=== PATIENT | female | born 2000 | race African-American/Black ===

== ENCOUNTER 2019-09-15 17:16 | Emergency (ER) | payer MEDICAID, SELFPAY ==
[2019-09-15 17:18] VITALS: BP 122/83; PULSE 107; PULSE 113; RESP 18; RESP 19; TEMP 35.9; O2SAT 97; O2SAT 99; BMI 20.9
--- NOTE | 2019-09-15 18:01 | ED.DCSUM_ITS ---
History of Present Illness Chief Complaint: Nausea/Vomiting Informant: Patient Onset: Today Context: Gradual Onset Timing: Continuous Current Severity: Severe Maximum Severity: Severe Narrative: Patient is a 18-year-old female with history of severe abdominal pain and vomiting associated with her menstrual cycles presenting with the same symptoms. Patient states she started her period today. She states she developed diffuse abdominal pain that feels like her typical menstrual cramps. She did develop severe vomiting. Patient try to take Zofran which she had at home but thinks she threw it up. She went to [facility] and was then referred to the ER for further evaluation. Patient states this is typical of what ever she has a menstrual cycle. She states she sees a member of congress up in [place] and has been prescribed control. She does not take it regularly. She also states she is running out of it but does still have some at her dorm room. Patient told triage that she was also lightheaded because of her symptoms. She denies any alcohol, marijuana, illicit drug or tobacco abuse. She does not think she is . She denies any other complaints at this time. Past Medical History - Allergies and Home Meds Allergies/Adverse Reactions: Allergies iodine Allergy (Verified 09/15/19 17:17) Unknown shellfish derived Allergy (Verified 09/15/19 17:17) Unknown Primary Care Physician: NOT,DEFINED [NON-STAFF] - Past Medical History: None Surgical History: no surgical history Lives: - - Dorm Smoking Status: Never smoker Alcohol: None Drugs: None Review of Systems All systems negative except as indicated Gastrointestinal: Reports: Abdominal pain, Nausea, Vomiting Genitourinary: Reports: - - Menstrual cramps Physical Exam Vital Signs/Narrative: Vital Signs Temp Pulse Resp BP Pulse Ox 09/15/19 17:18 96.6 F L 107 H 18 122/83 H 97 Inital Vital Signs reviewed: Yes General: Well nourished, Well developed, No Acute Distress, - - Patient retching during my exam Head: Normocephalic, Atraumatic Eyes: Perrl, EOMI ENT: Moist mucous membranes, No rhinorrhea Neck: Supple, Nontender Cardiovascular: Regular rate, Regular rhythm, No murmurs Respiratory: No distress, CTA bilaterally, Chest nontender Abdomen: Soft, Nondistended, Normal bowel sounds, No masses, Tender - Lower pelvic area, - - No pain at McBurney's point. Negative for: Rebound tenderness, Maher's sign Back: Nontender, Normal Inspection. Negative for: CVA tenderness Extremities: Nontender, No edema Skin: Normal color, No rash Neurological: Alert, Oriented x3, Cranial nerves II-XII grossly intact, Normal Strength, Normal Sensation Psychological: Normal Mood, - - Patient is withdrawn and answers most questions with head nods, poor eye contact Diagnostic/Tx/Re-eval Laboratory Data 09/15/19 09/15/19 09/15/19 17:55 17:55 20:14 WBC 10.6 RBC 4.90 Hgb 14.2 Hct 41.4 MCV 84.5 MCH 29.0 MCHC 34.3 RDW Std Deviation 40.5 RDW Coeff of Anamaria 13.2 Plt Count 242 MPV 9.1 Immature Gran % (Auto) 0.400 Neut % (Auto) 81.4 H Lymph % (Auto) 11.8 L Forest % (Auto) 5.9 Eos % (Auto) 0.1 Baso % (Auto) 0.4 Absolute Neuts (auto) 8.6 H Absolute Lymphs (auto) 1.25 Nucleated RBC % 0 Sodium 140 Potassium 3.8 Chloride 108 H Carbon Dioxide 22.0 Anion Gap 10 BUN 12 Creatinine 0.86 Estim Creat Clear Calc 103.97 Est GFR (MDRD) Af Amer 109 Est GFR (MDRD) Non-Af 90 BUN/Creatinine Ratio 14.0 Glucose 114 H Calcium 9.6 Total Bilirubin 0.40 AST 24 ALT 16 Alkaline Phosphatase 78 Total Protein 8.6 H Albumin 3.9 Globulin 4.7 H Albumin/Globulin Ratio 0.8 L Lipase 45 L Urine Color Urine Clarity Urine pH Ur Specific Darlington Urine Protein Urine Glucose (UA) Urine Ketones Urine Occult Blood Urine Nitrite Urine Bilirubin Urine Urobilinogen Ur Leukocyte Esterase Urine RBC Urine WBC Ur Squamous Epith Cells Amorphous Sediment Urine Bacteria Urine Mucus Urine Test Negative 09/15/19 20:14 WBC RBC Hgb Hct MCV MCH MCHC RDW Std Deviation RDW Coeff of Anamaria Plt Count MPV Immature Gran % (Auto) Neut % (Auto) Lymph % (Auto) Forest % (Auto) Eos % (Auto) Baso % (Auto) Absolute Neuts (auto) Absolute Lymphs (auto) Nucleated RBC % Sodium Potassium Chloride Carbon Dioxide Anion Gap BUN Creatinine Estim Creat Clear Calc Est GFR (MDRD) Af Amer Est GFR (MDRD) Non-Af BUN/Creatinine Ratio Glucose Calcium Total Bilirubin AST ALT Alkaline Phosphatase Total Protein Albumin Globulin Albumin/Globulin Ratio Lipase Urine Color Yellow Urine Clarity Cloudy Urine pH 7.0 Ur Specific Darlington 1.015 Urine Protein 30 H Urine Glucose (UA) Normal Urine Ketones 50 H Urine Occult Blood 250 H Urine Nitrite Negative Urine Bilirubin Negative Urine Urobilinogen Normal Ur Leukocyte Esterase 25 H Urine RBC 50-100 SEEN Urine WBC 5-10 SEEN Ur Squamous Epith Cells 0-5 SEEN Amorphous Sediment 2+ Urine Bacteria 4+ Urine Mucus 1+ Urine Test - Medical Decision Making Patient is evaluated for abdominal pain and vomiting. She states she gets these episodes with her menstrual cycles. She has an CONTROL TECHNICIAN in [place] and is supposed to be on control pills but does not take it regularly. She also states she is running out. Patient states like this feels like her prior episodes. She tried to take Zofran at home but threw it up. Patient is throwing up what looks like stomach contacts. There is no blood in it. She is difficult to examine initially because she does not want to lay down because she is retching. She is tender in her suprapubic region but does not have any peritoneal signs. Patient is initially given IV fluids, IV Zofran and Toradol. CBC, CMP and lipase are grossly normal. She does not have signs of acute leukocytosis, pancreatitis, transaminitis or KAREN. Urinalysis shows mild ketones and some blood which I suspect is contamination from her menstrual cycle. No signs of infection. I have a low suspicion for PID based on the fact that she is afebrile, denies any abnormal vaginal discharge and has normal blood work. Patient requires additional IV Phenergan as she is still having a lot of nausea and retching. On reevaluation she is mildly improved but still throwing up. Patient is given 2 mg of IV Haldol. On reevaluation patient is now resting comfortably in bed and states she feels much better. As patient states this is consistent with her prior episodes, I do not think imaging is indicated at this time. Her vital signs normalized with nausea and pain control. She is able to pass p.o. challenge in the emergency room. Patient is counseled that she really needs to adhere to her control regiment to prevent these episodes as a seem to be associated with her menstrual cycles. In addition she is referred to an CONTROL TECHNICIAN locally as she is now living down here for college. Patient is counseled on signs and symptoms requiring return to the emergency room. Patient verbalizes agreement and understand this plan. Patient discharged home in stable and improved condition. ED Disposition - Plan for ED Patient: Disposition: Home or Assisted Living Diagnosis: Nausea and vomiting, Abdominal pain, Dysmenorrhea Instructions: ABDOMINAL PAIN, Unknown Cause, (Female), VOMITING (5y-Adult), D ysmenorrhea Prescriptions: Ibuprofen [Motrin] 600 mg PO Q6H PRN PRN #20 tab PRN Reason: Pain Or Fever Prescription Printed proMETHazine suppository [Phenergan Suppository] 25 mg RECTAL Q6H PRN PRN #6 suppos. PRN Reason: Nausea Prescription Printed Ondansetron [Zofran Odt] 4 mg PO Q8H PRN PRN #15 tab PRN Reason: Nausea Prescription Printed Referrals: NOT,DEFINED [NON-STAFF] - Cody June MD [STAFF PHYSICIAN] - Additional Instructions: You have been seen for abdominal pain associate with her menstrual cycles. You have been prescribed multiple nausea medicines. The Phenergan suppository can be used if you were throwing up too much to tolerate any pills. Please start taking her control regularly. You can start taking it today when you get home. It is very importantly follow-up in CONTROL TECHNICIAN. Return the emergency room if you develop recurrent or worsening symptoms. Drink plenty of fluids at home.
[2019-09-15] MEDS: 0.9% Normal Saline 1,000 ML 1000 ML IV (18:03)
[2019-09-15] MEDS: Ketorolac 30 MG/ML Syringe IV (18:03)
[2019-09-15] MEDS: Ondansetron 4 MG/2 ML Vial IV (18:03)
[2019-09-15 18:04] LABS: Absolute Lymphocyte Count 1.25 X10^3/uL (0.83-4.51); Absolute Neutrophil Count 8.6 X10^3/uL (2.0-7.7); Basophil# 0.04 X10^3/uL; Basophil% 0.4 % (0-1); Eosinophil# 0.01 X10^3/uL; Eosinophils% 0.1 % (0-5); Hematocrit 41.4 % (37-47); Hemoglobin 14.2 g/dL (12.0-15.0); Lymphocyte # 1.25 X10^3/ul (4.0); Lymphocyte % 11.8 % (19-41); Mean Corp Hgb Conc 34.3 g/dL (32-36); Mean Corpuscular Volume 84.5 fL (81-99); Mean Platelet Vol. 9.1 fl (6.2-12.0); Monocyte# 0.63 X10^3/uL; Monocyte% 5.9 % (0-10); NRBC Flagged by Analyzer 0 % (0-5); Neutrophil # 8.63 X10^3/uL (2.7-7.7); Neutrophil % 81.4 % (47-70); Platelet Count 242 K/mm3 (150-450); RBC Distribution Width CV 13.2 % (11.6-14.6); RBC Distribution Width SD 40.5 fl (35.1-43.9); White Blood Count 10.6 K/mm3 (4.4-11.0)
[2019-09-15 19:18] LABS: ALB/GLOB Ratio 0.8 RATIO (0.9-2.4); AST(SGOT) 24 U/L (15-37); Alanine Aminotransfer ALT/SGPT 16 U/L (13-56); Albumin, Serum 3.9 g/dL (3.2-5.0); Alkaline Phosphatase 78 U/L (45-117); Anion Gap 10 (5-15); BUN 12 mg/dL (7-18); Calcium,Total 9.6 mg/dL (8.5-10.1); Chloride 108 mmol/L (98-107); Creatinine, Serum 0.86 mg/dL (0.55-1.02); EST Glomerular Filtration Rate 90 mL/min (>60); Est Glom Filt Rate - Afr Amer 109 mL/min (>60); Estimated Creatinine Clearance 103.97 ml/min; Globulin 4.7 g/dL (2.2-4.2); Glucose 114 mg/dL (74-106); Lipase 45 U/L (73-393); Potassium 3.8 mmol/L (3.5-5.1); Protein, Total 8.6 g/dL (6.4-8.2); Sodium Level 140 mmol/L (136-145)
--- NOTE | 2019-09-15 20:01 | ED.RN ---
1909 pt asked to get up to attempt a urine sample. pt denies to speak or get out of bed; md sosa notified.
[2019-09-15] MEDS: proMETHazine 25 MG/ML Syringe 12.5 MG IV (20:02)
[2019-09-15 20:15] VITALS: RESP 16
[2019-09-15 20:26] LABS: Color, Urine Yellow (Yellow); Glucose, Dipstick Normal (Normal); Ketone-Dipstick 50 mg/dl (Negative); Leukocyte Esterase-Dipstick 25 /ul (Negative); Nitrite-Dipstick Negative (Negative); Occult Blood-Urine 250 /ul (Negative); Protein-Dipstick 30 mg/dl (Negative); Specific Gravity, Urine 1.015 (1.002-1.030); Urine Bilirubin Dipstick Negative (Negative); Urine Clarity Cloudy (Clear); Urine Urobilinogen Normal (Normal)
[2019-09-15 20:45] LABS: Internal QC Validated? YES +Cl - CLEAR BKGD; Pregnancy, Urine Negative Negative
[2019-09-15 20:51] LABS: Red Blood Cells-Urine 50-100 SEEN /hpf (0-5); White Blood Cells 5-10 SEEN /hpf (0-5)
[2019-09-15 20:52] LABS: Bacteria 4+ /hpf (None Seen); Squamous Epithelial Cells - UA 0-5 SEEN /hpf (5-10)
[2019-09-15 20:53] LABS: Amorphous Sediment 2+; Mucous, Urine 1+ /hpf (<or=2+)
[2019-09-15] MEDS: Haloperidol Lactate 5 MG/ML Vial 2 MG IV (21:38)
[2019-09-15 21:39] VITALS: BP 128/77; PULSE 92; RESP 16
[2019-09-15 22:48] VITALS: BP 131/99; PULSE 86; RESP 15
== END 2019-09-15 22:49 | disposition home or self-care (01) ==
PROVIDERS: Emergency Provider Emergency Medicine
DX: R11.2 Nausea with vomiting, unspecified (principal); R10.84 Generalized abdominal pain; N94.6 Dysmenorrhea, unspecified; Z79.899 Other long term (current) drug therapy
CPT/HCPCS: 80053; 81001; 81025; 83690; 85025; 96361; 96374; 96375; 99283; J7030; A4216; J2405

== ENCOUNTER 2021-01-31 17:57 | Emergency (ER) | payer MEDICAID, SELFPAY ==
[2021-01-31 17:58] VITALS: BP 113/80; PULSE 82; RESP 18; TEMP 36.9; O2SAT 96; BMI 27.3
--- NOTE | 2021-01-31 18:06 | ED.DCSUM_ITS ---
History of Present Illness Chief Complaint: Abd Pain Informant: Patient Onset: Today Current Severity: Moderate Maximum Severity: Moderate Narrative: Patient presents with abdominal pain along with nausea and vomiting. Patient tends to get bad abdominal pain with vomiting at the start of her menstrual cycle. She states she started her cycle today. She states the pain seemed to be more severe than normal. She tried taking some [id number] medication without improvement. She went to the student center at the [facility] and they sent her to the emergency room for evaluation. Patient denies possibility of . She denies recent alcohol or drug use. Past Medical History - Allergies and Home Meds Allergies/Adverse Reactions: Allergies iodine Allergy (Verified 01/31/21 18:04) Unknown shellfish derived Allergy (Verified 01/31/21 18:04) Unknown Primary Care Physician: Care Physician,No Primary [Primary Care Provider] - Surgical History: no surgical history Lives: - - College dorm Smoking Status: Never smoker Review of Systems General: Denies: Chills, Fever Eyes: Denies: Visual changes - bilaterally ENT: Denies: Bilateral ear pain Cardiovascular: Denies: Chest pain Respiratory: Denies: Dyspnea, Cough Gastrointestinal: Reports: Abdominal pain, Nausea, Vomiting. Denies: Diarrhea Genitourinary: Denies: Dysuria Musculoskeletal: Denies: Swelling, Extremity Pain Skin: Denies: Rash Neurological: Denies: Headache Hematologic: Denies: Easy bruising, Easy bleeding Allergy: Denies: Uticaria Physical Exam Vital Signs/Narrative: Vital Signs Temp Pulse Resp BP Pulse Ox 01/31/21 17:58 98.4 F 82 18 113/80 96 Inital Vital Signs reviewed: Yes General: Well nourished, Well developed Head: Normocephalic Eyes: Perrl, EOMI Neck: Supple Cardiovascular: Regular rate, Regular rhythm Respiratory: No distress, CTA bilaterally Abdomen: Soft, Tender - Suprapubic tenderness to palpation., Hypoactive bowel sounds. Negative for: Guarding, Rebound tenderness Extremities: Nontender Skin: Normal color, No rash Neurological: Alert, Oriented x3 Psychological: Tearful Diagnostic/Tx/Re-eval Laboratory Results 01/31/21 01/31/21 01/31/21 18:07 18:07 18:07 WBC 6.8 RBC 4.55 Hgb 13.3 Hct 40.0 MCV 87.9 MCH 29.2 MCHC 33.3 RDW Std Deviation 44.5 H RDW Coeff of Anamaria 14.0 Plt Count 217 MPV 9.3 Immature Gran % (Auto) 0.100 Neut % (Auto) 67.8 Lymph % (Auto) 23.5 Hall % (Auto) 7.4 Eos % (Auto) 0.6 Baso % (Auto) 0.6 Absolute Neuts (auto) 4.6 Absolute Lymphs (auto) 1.59 Nucleated RBC % 0 Sodium 138 Potassium 3.9 Chloride 106 Carbon Dioxide 27.0 Anion Gap 5 BUN 11 Creatinine 0.73 Estim Creat Clear Calc 118.55 Est GFR (MDRD) Af Amer 129 Est GFR (MDRD) Non-Af 106 BUN/Creatinine Ratio 15.0 Glucose 82 Calcium 9.1 Serum , Qual NEGATIVE - Medical Decision Making She was initially given Toradol, Zofran, and IV fluids. On repeat evaluation she reported some improvement in her symptoms. She was given ice chips and cr ackers. While she was able to tolerate this she states she did become more nauseated. She was then given a dose of Reglan and Benadryl. At this time patient is resting comfortably. She states she feels very sleepy from the medication. She has not had any vomiting in the emergency room. Should be discharged back to the [facility] so she can sleep in her own room. She will be given prescriptions for Zofran and naproxen. ED Disposition - Plan for ED Patient: Disposition: Home or Assisted Living Diagnosis: Menstrual cramps, Vomiting Instructions: ED Vomiting (Adult), ED Pelvic Pain, Unknown Cause Prescriptions: Naproxen [Naprosyn] 500 mg PO BID PRN PRN #20 tablet PRN Reason: Pain Score 4-10 Ondansetron [Zofran Odt] 4 mg PO Q8H PRN PRN #10 tablet PRN Reason: Nausea Referrals: [facility] [GROUP OF PHYSICIANS] -
[2021-01-31 18:13] LABS: Absolute Lymphocyte Count 1.59 X10^3/uL (0.83-4.51); Absolute Neutrophil Count 4.6 X10^3/uL (2.0-7.7); Basophil# 0.04 X10^3/uL; Basophil% 0.6 % (0-1); Eosinophil# 0.04 X10^3/uL; Eosinophils% 0.6 % (0-5); Hemoglobin 13.3 g/dL (12.0-15.0); Lymphocyte # 1.59 X10^3/ul (4.0); Lymphocyte % 23.5 % (19-41); Mean Corp Hgb Conc 33.3 g/dL (32-36); Mean Corpuscular Hgb 29.2 pg (27.0-32.0); Mean Corpuscular Volume 87.9 fL (81-99); Mean Platelet Vol. 9.3 fl (6.2-12.0); Monocyte% 7.4 % (0-10); NRBC Flagged by Analyzer 0 % (0-5); Neutrophil # 4.58 X10^3/uL (2.7-7.7); Neutrophil % 67.8 % (47-70); Platelet Count 217 K/mm3 (150-450); RBC Distribution Width SD 44.5 fl (35.1-43.9); Red Blood Count 4.55 M/mm3 (4.2-5.4); White Blood Count 6.8 K/mm3 (4.4-11.0)
[2021-01-31] MEDS: Ondansetron 4 MG/2 ML Vial IV (18:16)
[2021-01-31] MEDS: Ketorolac 30 MG/ML Syringe IV (18:16)
[2021-01-31] MEDS: 0.9% Normal Saline 1,000 ML 1000 ML IV (18:16)
[2021-01-31 18:26] LABS: Anion Gap 5 (5-15); BUN 11 mg/dL (7-18); Calcium,Total 9.1 mg/dL (8.5-10.1); Chloride 106 mmol/L (98-107); Creatinine, Serum 0.73 mg/dL (0.55-1.02); EST Glomerular Filtration Rate 106 mL/min (>60); Est Glom Filt Rate - Afr Amer 129 mL/min (>60); Estimated Creatinine Clearance 118.55 ml/min; Glucose 82 mg/dL (74-106); Internal QC Validated? YES +Cl - CLEAR BKGD; Potassium 3.9 mmol/L (3.5-5.1); Pregnancy, Serum, hCG Quali. NEGATIVE Negative; Sodium Level 138 mmol/L (136-145)
--- NOTE | 2021-01-31 19:43 | ED.RN ---
[facility] updated on patient condition and status
[2021-01-31] MEDS: DiphenhydrAMINE 50 MG/ML Syringe 25 MG IV (20:38)
[2021-01-31] MEDS: Metoclopramide 10 MG/2 ML Vial IV (20:39)
[2021-01-31 21:46] VITALS: BP 103/70; PULSE 70; RESP 18; O2SAT 99
== END 2021-01-31 21:48 | disposition home or self-care (01) ==
PROVIDERS: Emergency Provider Emergency Medicine
DX: N94.6 Dysmenorrhea, unspecified (principal); R11.10 Vomiting, unspecified
CPT/HCPCS: 80048; 84703; 85025; 96361; 96374; 96375; 99285; J7030; A4216; J2405

== ENCOUNTER 2021-02-02 08:24 | Emergency (ER) | payer MEDICAID, SELFPAY ==
[2021-02-02 08:25] VITALS: BP 130/96; PULSE 75; RESP 22; TEMP 36.6; O2SAT 100; BMI 28.4
--- NOTE | 2021-02-02 08:35 | ED.DCSUM_ITS ---
History of Present Illness Chief Complaint: Chest Pain Informant: Patient Onset: Hours Conflict: - - Stress related to recent of grandmother, schoolwork and other issues Timing: Continuous, Waxes and wanes Current Severity: Mild Maximum Severity: Moderate Worsened by: Situational factors Relieved by: Nothing Associated Symptoms: Depressed, Change in sleeping. 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 Mother lives in [place]. She has not seen a counselor in 2 years. She states she is behind in schoolwork because she left school to attend the of her maternal grandmother. She denies suicidal thoughts or homicidal thoughts. She does admit to depression. She does admit to being anxious. She feels she is under stress. She is present on no antidepressants. She is presently on her menses. She denies fever, chills night sweats. Does report mild headache. She does complain of blurred vision which improves with blinking. She denies auditory symptoms. She denies upper respiratory symptoms. There is no history of PE, DVT or complaint of leg pain, swelling or discoloration. Prior similar symptoms: Yes Recent Illness/Hospitalization: No - Past Medical History (1) No significant past medical history Status: Acute Past Medical History - Allergies and Home Meds Allergies/Adverse Reactions: Allergies iodine Allergy (Verified 02/02/21 08:32) Unknown shellfish derived Allergy (Verified 02/02/21 08:32) Unknown Primary Care Physician: Care Physician,No Primary [NON-STAFF] - Prior records reviewed: No Surgical History: no surgical history Lives: With Family Smoking Status: Never smoker Alcohol: None Drugs: None Review of Systems General: Denies: Chills, Fever, Sweats Eyes: Reports: Blurred Vision - bilaterally - Improves with blinking which would indicate issues related to crying/tears.. Denies: Visual changes - bilaterally ENT: Denies: Rhinorrhea, Sore throat Cardiovascular: Denies: Chest pain, Palpitations Respiratory: Denies: Dyspnea, Cough, Dyspnea on exertion Gastrointestinal: Denies: Abdominal pain, Nausea, Vomiting, Diarrhea, Melena, Hematochezia Genitourinary: Denies: Dysuria, Hematuria, Frequency Musculoskeletal: Denies: Back pain, Extremity Pain Skin: Denies: Rash, Wounds Neurological: Denies: Headache, Weakness, Numbness Psych: Reports: Depression, Anxiety. Denies: Suicidal thoughts, Suicidal ideations Physical Exam Vital Signs/Narrative: Vital Signs Temp Pulse Resp BP Pulse Ox 02/02/21 08:25 97.8 F 75 22 H 130/96 H 100 Inital Vital Signs reviewed: Yes General: Well nourished, Well developed Head: Normocephalic, Atraumatic Eyes: Perrl, EOMI. Negative for: Pale conjunctiva, Scleral icterus ENT: Moist mucous membranes, No rhinorrhea Neck: Supple, Nontender, No lymphadenopathy, No JVD Cardiovascular: Regular rate, Regular rhythm, No murmurs, Normal S1, Normal S2 Respiratory: No distress, CTA bilaterally, Chest nontender Abdomen: Soft, Nontender, Nondistended, Normal bowel sounds Back: Nontender, Normal Inspection Extremities: Nontender, No Edema. Negative for: Healed prior injuries, Tenderness, Edema, Symmetric, Asymmetric Skin: Normal color, No rash Neurological: Alert, Oriented x3, Cranial nerves II-XII grossly intact, Normal Strength, Normal Sensation Psych: Logical sequential goal directed thoughts, No suicidal or homicidal ideation, Normal Appearance, Depressed, Flat Affect, Poverty of Speech. Negative for: Normal Speech Pattern, Irritable, Euphoric, Labile, Blunted Affect, Restricted Affect, Pressured Speech, Flight of Ideas, Incoherent thoughts, Suicidal thoughts, Homicidal thoughts, Hallucinations, Delusions, Paranoid Ideation Diagnostic/Tx/Re-eval Suspect patient had an anxiety reaction. Feels she has been under stress has multiple stressors and appears depressed. She is not suicidal. Because she presently has tremors feels anxious we will treat with IV Ativan and I will reassess 30 to 60 minutes later. Patient was reassessed at 0945. She states she has not had any significant improvement after Ativan. She has poverty of speech. Flat affect. She appears depressed. She admits she is sad. Consult was placed to case management. Case management to see Ms. Virgen. She contacted the call to [place]. They are making arrangements for outpatient follow-up and treatment. ED Disposition - Plan for ED Patient: Disposition: Home or Assisted Living Diagnosis: Depression, Anxiety, PTSD (post-traumatic stress disorder) Instructions: ED Depression Referrals: Care Physician,No Primary [NON-STAFF] - [place] [GROUP OF PHYSICIANS] - Keep Lexi appointment
[2021-02-02] MEDS: LORazepam 2 MG/ML Syringe 0.5 MG IV (09:01)
[2021-02-02 10:24] VITALS: BP 124/80; PULSE 74; RESP 10; O2SAT 100
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
[2021-02-02 10:50] VITALS: BP 127/80; PULSE 71; RESP 15; O2SAT 99
== END 2021-02-02 10:52 | disposition home or self-care (01) ==
PROVIDERS: Emergency Provider Emergency Medicine; PCP Pediatrics
DX: F32.9 Major depressive disorder, single episode, unspecified (principal); F41.9 Anxiety disorder, unspecified; R00.2 Palpitations; R06.02 Shortness of breath; R51.9 Headache, unspecified; H53.8 Other visual disturbances; F43.10 Post-traumatic stress disorder, unspecified; X58.XXXA Exposure to other specified factors, initial encounter; Y93.9 Activity, unspecified; Y92.9 Unspecified place or not applicable; Y99.9 Unspecified external cause status
CPT/HCPCS: 96374; 99285; A4216

== ENCOUNTER 2021-10-25 13:18 | Outpatient (REF) | payer SELFPAY ==
[2021-10-25 13:37] LABS: Internal QC Validated? YES +Cl - CLEAR BKGD; Pregnancy, Urine Negative Negative
== END 2021-10-25 23:59 | disposition home or self-care (01) ==
LOC: EDREF 13:18
PROVIDERS: Emergency Medicine; PCP Pediatrics
DX: Z04.41 Encounter for examination and observation following alleged adult rape (principal)
CPT/HCPCS: 81025

== ENCOUNTER 2022-01-24 11:38 | Emergency (ER) | payer MEDICAID, SELFPAY ==
[2022-01-24 11:42] VITALS: BP 126/63; PULSE 70; RESP 20; TEMP 36.4; O2SAT 100; BMI 27.9
--- NOTE | 2022-01-24 12:01 | RAD_ITS ---
STUDY: X-RAY CHEST REASON FOR EXAM: Female, 21 years old. chest pain TECHNIQUE: PA and lateral views of the chest. COMPARISON: None. FINDINGS: The lungs are clear and expanded. There is no demonstrated pleural abnormality. Normal size heart. Normal mediastinum and kwan. Normal visualized pulmonary arteries. Normal visualized aortic arch and descending thoracic aorta. Normal visualized thoracic spine. Normal visualized ribs, clavicles, and shoulders. There is no demonstrated abnormality of the visualized soft tissue structures of the upper abdomen. RAD/Chest PA and Lateral IMPRESSION: Normal x-ray examination of the chest. Electronically Signed: Gurwinder Castro MD at 12:34 EST ,
--- NOTE | 2022-01-24 12:01 | EKG12_ITS ---
Test Reason : CP Blood Pressure : / mmHG Vent. Rate : 067 BPM Atrial Rate : 067 BPM P-R Int : 152 ms QRS Dur : 084 ms QT Int : 400 ms P-R-T Axes : 068 084 054 degrees QTc Int : 422 ms Normal sinus rhythm Normal ECG Confirmed by JINA FLORES, TREVOR ([id number]), news copy editor THERON MCFARLAND ([id number]) on 01/25/2022 9:56:16 AM Referred By: PC Confirmed By:TREVOR MURO MD
[2022-01-24 12:41] VITALS: BP 127/83; PULSE 61; RESP 13; O2SAT 98
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
[2022-01-24 13:17] VITALS: BP 134/90; PULSE 70; RESP 15; O2SAT 98
[2022-01-24] MEDS: hydrOXYzine PAM 25 MG Capsule PO (13:22)
[2022-01-24] MEDS: Ibuprofen 600 MG Tablet PO (13:22)
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
[2022-01-24 13:44] VITALS: BP 115/73; PULSE 64; RESP 16; O2SAT 100
== END 2022-01-24 13:45 | disposition home or self-care (01) ==
PROVIDERS: Emergency Provider Emergency Medicine; PCP Pediatrics; Visit Provider Emergency Medicine
DX: F41.9 Anxiety disorder, unspecified (principal); R07.89 Other chest pain
CPT/HCPCS: 71046; 93005; 99285

== ENCOUNTER 2022-10-27 16:28 | Emergency (ER) | payer MEDICAID, SELFPAY ==
[2022-10-27 16:29] VITALS: BP 115/72; PULSE 65; RESP 15; TEMP 36.3; O2SAT 99; BMI 26.6
--- NOTE | 2022-10-27 16:42 | CT_ITS ---
STUDY: CT ABDOMEN AND PELVIS WITHOUT CONTRAST REASON FOR EXAM: Female, 21 years old. PAIN RADIATION DOSAGE (If Supplied By Facility): CTDIvol = ( 7.43 ) mGy, DLP = ( 358.08 ) mGycm TECHNIQUE: Transaxial images were obtained from the dome of the diaphragm to the symphysis pubis without oral contrast, and without intravenous contrast. Sagittal and coronal images were reconstructed. Individualized dose optimization techniques were used for this CT. COMPARISON: None. FINDINGS: The visualized lung bases are unremarkable. The visualized portions of the heart are within normal limits. Normal liver. Normal gallbladder and extrahepatic biliary system. Normal spleen. Normal pancreas. Normal bilateral adrenal glands. Normal right kidney. Normal left kidney. Normal visualized stomach. Normal small intestine. Normal colon. The appendix is visualized and appears normal. Normal abdominal aorta. Normal inferior vena cava. Normal retroperitoneum. Circumferential urinary bladder wall thickening to at least 9 mm. Normal visualized uterus. Normal abdominal wall. Normal thoracolumbar vertebral alignment. CT/Abdomen/Pelvis without Cont IMPRESSION: Circumferential urinary bladder wall thickening is suspicious for cystitis. Electronically Signed: Mickey Hernandez MD at 18:42 EST ,
--- NOTE | 2022-10-27 16:43 | EDS_ITS ---
HPI HPI - GI History of Present Illness Chief Complaint: Abd Pain Narrative Narrative: 21-year-old female who denies significant past medical history presents with abdominal pain, nausea and vomiting since Monday, 5 days ago. She states she vomited at least 8 times on Monday and by then, she had blood-tinged emesis. She denies any diarrhea or problems with bowel movements. She complains of lower abdominal pain. Additionally, she started having cramping from her menses on Monday about the same time. While her vomiting has improved, she usually only is able to intake a small amount of liquids. Her vomiting stopped yesterday, and that was last time she had any sort of emesis. It was nonbloody. She denies any past surgical abdominal history. No fevers or chills. No dysuria or hematuria. No other symptoms. She was concerned regarding the blood in her emesis. She does not take any blood thinners. PFSH PFSH Medical History no medical history Home Medications hydroxyzine HCl 25 mg tablet 25 mg PO TID PRN anxiety #20 tabs 01/24/22 [Rx Last Taken Unknown] ibuprofen 600 mg tablet 600 mg PO Q6H PRN PRN Pain Score 1-10/10 #20 tabs 01/24/22 [Rx Last Taken Unknown] Allergy/AdvReac Type Severity Reaction Status Date / Time iodine Allergy Unknown Verified 10/27/22 16:29 shellfish derived Allergy Unknown Verified 10/27/22 16:29 Social History Smoking Status: Never smoker ROS ROS ED ROS Narrative Constitutional: No fever, no chills. HEENT: No sore throat. No neck pain. No loss of vision. No rhinorrhea. Cardiovascular: No chest pain. No palpitations. No pedal edema. Respiratory: No cough, no shortness of breath. Abdominal: Lower abdominal pain and cramping. Positive nausea. Positive vomiting with blood-tinged emesis-resolved. No diarrhea. Genitourinary: No dysuria. No hematuria. Positive vaginal bleeding with start of menstruation. Musculoskeletal: No myalgias. No arthralgias. Neurologic: No headaches. No dizziness. No lightheadedness. Skin: No rash. No change in color. Psychiatric: No depression. No anxiety. EXAM Physical Exam Narrative Exam Narrative: Afebrile. Vital signs noted. HEENT: Normocephalic. Atraumatic. PERRL, EOMI. Neck soft and supple. No point tenderness or step off. Cardiovascular: Regular rate and rhythm. No murmurs, rubs, or gallops appreciated. Respiratory: No tachypnea. Lungs clear to auscultation bilaterally. Gastrointestinal: Abdomen soft, mild tenderness bilateral lower quadrants, with normoactive bowel sounds. No rebound or guarding. Neurological: Awake. Alert. Nonfocal, nonlateralizing. Skin: No rash. Normal color. No pallor. Musculoskeletal: No pedal edema. Full range of motion extremities. Const Vital Signs: 10/27/22 16:29 10/27/22 18:42 Temperature 97.4 F L Temperature Source Temporal Pulse Rate 65 68 Respiratory Rate 15 16 Blood Pressure 115/72 109/55 L Blood Pressure Mean 86 73 Pulse Ox 99 98 Oxygen Delivery Method Room Air Room Air MDM MDM MDM Narrative Medical decision making narrative: Comprehensive work-up was pursued. She was bolused normal saline 1 L intravenously. She declined antiemetics currently. I will obtain a CBC, CMP, lipase, and urinalysis. Although she is on her menses, I will still obtain serum qualitative test. Additionally, she has an allergy to iodine so I will obtain CT imaging without contrast. WBC count is normal at 5.9, hemoglobin normal at 12.3, hematocrit 36.2 with normal platelet count of 252. She is slightly hypokalemic at 3.4. She is drinking Gatorade. Glucose normal at 84. BUN of 18 is normal along with creatinine of 0.7. Serum is negative. CT of the abdomen and pelvis shows bladder wall thickening. However, her urinalysis has a lot of red cells in it which I think may be contaminant from her current menses. She has 0 bacteria and 0-5 WBCs in her urine. I do not feel antibiotics are indicated. She states that she was concerned regarding the vomiting with tinges of blood that she had. I do think she may have had a Mila-Sanderson tear. Regardless, she has no longer vomiting and is tolerating p.o. fluids. I feel she be discharged safely home with follow-up. Return instructions to the emergency department were reviewed. Disposition is discharged home in stable condition. Lab Data Attestation: I reviewed the patient's lab results. Labs: Laboratory Results - last 24 hr 10/27/22 10/27/22 10/27/22 16:50 16:50 16:50 WBC 5.9 RBC 4.22 Hgb 12.3 Hct 36.2 L MCV 85.8 MCH 29.1 MCHC 34.0 RDW Std Deviation 42.5 RDW Coeff of Anamaria 13.6 Plt Count 252 MPV 9.4 Immature Gran % (Auto) 0.000 Neut % (Auto) 53.1 Lymph % (Auto) 32.2 Mcdonough % (Auto) 11.9 H Eos % (Auto) 1.9 Baso % (Auto) 0.9 Absolute Neuts (auto) 3.1 Absolute Lymphs (auto) 1.89 Nucleated RBC % 0 Sodium 140 Potassium 3.4 L Chloride 106 Carbon Dioxide 29.0 Anion Gap 5 BUN 18 Creatinine 0.70 Estim Creat Clear Calc 122.59 Est GFR (MDRD) Af Amer 133 Est GFR (MDRD) Non-Af 110 BUN/Creatinine Ratio 25.5 H Glucose 84 Calcium 9.2 Total Bilirubin 0.40 AST 14 L ALT 15 Alkaline Phosphatase 68 Total Protein 7.6 Albumin 3.4 Globulin 4.2 Albumin/Globulin Ratio 0.8 L Lipase 57 L Serum , Qual NEGATIVE Urine Color Urine Clarity Urine pH Ur Specific [place] Urine Protein Urine Glucose (UA) Urine Ketones Urine Occult Blood Urine Nitrite Urine Bilirubin Urine Urobilinogen Ur Leukocyte Esterase Urine RBC Urine WBC Ur Squamous Epith Cells Urine Bacteria Urine Mucus 10/27/22 17:26 WBC RBC Hgb Hct MCV MCH MCHC RDW Std Deviation RDW Coeff of Anamaria Plt Count MPV Immature Gran % (Auto) Neut % (Auto) Lymph % (Auto) Mcdonough % (Auto) Eos % (Auto) Baso % (Auto) Absolute Neuts (auto) Absolute Lymphs (auto) Nucleated RBC % Sodium Potassium Chloride Carbon Dioxide Anion Gap BUN Creatinine Estim Creat Clear Calc Est GFR (MDRD) Af Amer Est GFR (MDRD) Non-Af BUN/Creatinine Ratio Glucose Calcium Total Bilirubin AST ALT Alkaline Phosphatase Total Protein Albumin Globulin Albumin/Globulin Ratio Lipase Serum , Qual Urine Color Yellow Urine Clarity Cloudy Urine pH 6.0 Ur Specific [place] 1.025 Urine Protein 30 H Urine Glucose (UA) Normal Urine Ketones Negative Urine Occult Blood 250 H Urine Nitrite Negative Urine Bilirubin Negative Urine Urobilinogen Normal Ur Leukocyte Esterase 500 H Urine RBC > 100 SEEN Urine WBC 0-5 SEEN Ur Squamous Epith Cells 0-5 SEEN Urine Bacteria 0 SEEN Urine Mucus 1+ Radiography Diagnostic Testing: Clinical Impression(s) from Imaging Studies Abdomen/Pelvis CT 10/27/22 16:42 IMPRESSION: Circumferential urinary bladder wall thickening is suspicious for cystitis. Electronically Signed: Mickey Hernandez MD at 18:42 EST , Discharge Plan Triage Chief Complaint: Abd Pain ED Provider: Mustapha Grijalva Dx/Rx/DC Orders Clinical Impression: Pelvic cramping, Mila-Sanderson tear, Bladder wall thickening Instructions: Mila-Sanderson Tear, ED Pelvic Pain, Unknown Cause Prescriptions: No Action hydroxyzine HCl 25 mg tablet 25 mg PO TID PRN (Reason: anxiety ) Qty: 20 0RF ibuprofen 600 mg tablet 600 mg PO Q6H PRN PRN (Reason: Pain Score 1-10/10) Qty: 20 0RF Primary Care Provider: Lucien Grove Referrals: Lucien Grove MD [Primary Care Provider] - As soon as possible Disposition Disposition: Home, Self Care
[2022-10-27] MEDS: 0.9% Normal Saline 1,000 ML 1000 ML IV (16:53)
[2022-10-27 17:21] LABS: ALB/GLOB Ratio 0.8 RATIO (0.9-2.4); AST(SGOT) 14 U/L (15-37); Alanine Aminotransfer ALT/SGPT 15 U/L (13-56); Albumin, Serum 3.4 g/dL (3.2-5.0); Alkaline Phosphatase 68 U/L (45-117); Anion Gap 5 (5-15); BUN 18 mg/dL (7-18); BUN/Creat Ratio 25.5 RATIO (10-20); Calcium,Total 9.2 mg/dL (8.5-10.1); Chloride 106 mmol/L (98-107); EST Glomerular Filtration Rate 110 mL/min (>60); Est Glom Filt Rate - Afr Amer 133 mL/min (>60); Estimated Creatinine Clearance 122.59 ml/min; Globulin 4.2 g/dL (2.2-4.2); Glucose 84 mg/dL (74-106); Lipase 57 U/L (73-393); Potassium 3.4 mmol/L (3.5-5.1); Protein, Total 7.6 g/dL (6.4-8.2); Sodium Level 140 mmol/L (136-145)
[2022-10-27 17:27] LABS: Absolute Lymphocyte Count 1.89 X10^3/uL (0.83-4.51); Absolute Neutrophil Count 3.1 X10^3/uL (2.0-7.7); Basophil# 0.05 X10^3/uL; Basophil% 0.9 % (0-1); Eosinophil# 0.11 X10^3/uL; Eosinophils% 1.9 % (0-5); Hematocrit 36.2 % (37-47); Hemoglobin 12.3 g/dL (12.0-15.0); Lymphocyte # 1.89 X10^3/ul (0.83-4.51); Lymphocyte % 32.2 % (19-41); Mean Corpuscular Hgb 29.1 pg (27.0-32.0); Mean Corpuscular Volume 85.8 fL (81-99); Mean Platelet Vol. 9.4 fl (6.2-12.0); Monocyte% 11.9 % (0-10); NRBC Flagged by Analyzer 0 % (0-5); Neutrophil # 3.12 X10^3/uL (2.7-7.7); Neutrophil % 53.1 % (47-70); Platelet Count 252 K/mm3 (150-450); RBC Distribution Width CV 13.6 % (11.6-14.6); RBC Distribution Width SD 42.5 fl (35.1-43.9); Red Blood Count 4.22 M/mm3 (4.2-5.4); White Blood Count 5.9 K/mm3 (4.4-11.0)
[2022-10-27 17:44] LABS: Internal QC Validated? YES +Cl - CLEAR BKGD; Pregnancy, Serum, hCG Quali. NEGATIVE Negative
[2022-10-27 17:44] LABS: Bacteria 0 SEEN /hpf (None Seen)
[2022-10-27 17:55] LABS: Color, Urine Yellow (Yellow); Glucose, Dipstick Normal (Normal); Ketone-Dipstick Negative (Negative); Leukocyte Esterase-Dipstick 500 /ul (Negative); Nitrite-Dipstick Negative (Negative); Occult Blood-Urine 250 /ul (Negative); Protein-Dipstick 30 mg/dl (Negative); Specific Gravity, Urine 1.025 (1.002-1.030); Urine Bilirubin Dipstick Negative (Negative); Urine Clarity Cloudy (Clear); Urine Urobilinogen Normal (Normal)
[2022-10-27 18:23] LABS: Mucous, Urine 1+ /hpf (<or=2+); Red Blood Cells-Urine > 100 SEEN /hpf (0-5); Squamous Epithelial Cells - UA 0-5 SEEN /hpf (5-10)
[2022-10-27 18:24] LABS: White Blood Cells 0-5 SEEN /hpf (0-5)
[2022-10-27 18:42] VITALS: BP 109/55; PULSE 68; RESP 16; O2SAT 98
== END 2022-10-27 18:59 | disposition home or self-care (01) ==
PROVIDERS: Emergency Provider Emergency Medicine; PCP Pediatrics; Visit Provider Emergency Medicine
DX: K22.6 Gastro-esophageal laceration-hemorrhage syndrome (principal); N32.89 Other specified disorders of bladder; R10.2 Pelvic and perineal pain
CPT/HCPCS: 74176; 80053; 81001; 83690; 84703; 85025; 96360; 96361; 99282; J7030; A4216